=== PATIENT | male | born 1970 | race Caucasian/White ===

== ENCOUNTER → 2016-09-09 | Outpatient (CLI) | payer OTHER ==
--- NOTE | 2016-09-09 13:22 | RAD ---
Indication assess renal stones. Supine films of the abdomen were obtained. No prior imaging is available. There is a left ureteral stent extending from the expected position of the renal pelvis to the urinary bladder. There are multiple left renal calculi. A staghorn calculus involving the inferior pole of the left kidney is not excluded. The abdominal gas pattern is normal
== END | disposition home or self-care (01) ==
LOC: DXRAD 12:57
PROVIDERS: ATTEND Urology
DX: N20.0 Calculus of kidney (principal)
CPT/HCPCS: 74000